=== PATIENT | female | born 1955 | race Caucasian/White ===

== ENCOUNTER 2018-04-28 00:35 | Inpatient (IN) | payer OTHER ==
--- OUTSIDE RECORDS SUMMARY | 2018-04-28 00:37 | XMS REPORT | Clinical Summary ---
:1955 Author Organization [facility] Address [address] [place] [address] Care Team Providers Name Role Phone Ni Rodriguez MD Primary Care Provider Allergies Active Allergy Reactions Severity Noted Date Comments Penicillins Rash High 02/06/2017 Current Medications Prescription Sig. Disp. Refills Start Date End Date Status ranitidine (ZANTAC) Take 300 mg by 0 12/05/2016 Active 300 MG tablet mouth once daily. escitalopram Take 20 mg by 0 12/05/2016 Active (LEXAPRO) 20 MG mouth once tablet daily. levothyroxine Take 112 mcg by 0 12/05/2016 Active (SYNTHROID, LEVOXYL) mouth once 112 mcg tablet daily. cyanocobalamin 1,000 01/24/2017 Active mcg/mL injection PROAIR HFA 90 INHALE 1 PUFF BY 0 12/26/2016 Active mcg/actuation inhaler MOUTH 3 TIMES A DAY NEEDED FOR SHORTNESS OF BREATH SYMBICORT 80-4.5 Inhale 2 puffs 2 0 09/09/2017 Active mcg/actuation inhaler (two) times a day. gabapentin 100 mg. 0 08/27/2017 Active (NEURONTIN) 100 mg capsule montelukast Take 10 mg by 0 09/04/2017 Active (SINGULAIR) 10 mg mouth daily. tablet potassium chloride 01/30/2017 09/24/2017 Discontinued (KLOR-CON) 10 MEQ CR tablet HEMOCYTE-PLUS 106 mg Take 1 capsule 0 12/05/2016 09/24/2017 Discontinued iron- 1 mg capsule by mouth once daily. MAGNESIUM CHLORIDE Take 500 mg by 09/24/2017 Discontinued ORAL mouth. KLOR-CON M20 20 mEq 03/05/2017 09/24/2017 Discontinued CR tablet Active Problems Problem Noted Date Lung nodule 03/19/2017 Encounters Date Type Specialty Care Team Description 09/25/2017 Telephone Cardiothoracic Surgery Katina De Leon NP 09/24/2017 Office Visit Cardiothoracic Surgery [facility] Lung nodule (Primary Dx) 09/24/2017 Hospital Encounter Radiology Oswald [facility]inas Lung kaleigh FLORES 09/06/2017 Transcribe Orders Cardiothoracic Surgery Oswald [facility]inas Lung nodule (Primary Dx) after 04/27/2017 Social History Tobacco Use Types Packs/Day Years Used Date Former Smoker Cigarettes Quit: 07/2015 Smokeless Tobacco: Never Used Tobacco Cessation: Counseling Given: No Alcohol Use Drinks/Week oz/Week Comments Yes 2-3 Months at a time Sex Assigned at Date Recorded Not on file Last Filed Vital Signs Vital Sign Reading Time Taken Blood Pressure 131/72 09/24/2017 12:53 PM [facility] Pulse 76 09/24/2017 12:53 PM [facility] Temperature 36.7 C (98 F) 09/24/2017 12:53 PM [facility] Respiratory Rate 18 09/24/2017 12:53 PM [facility] Oxygen Saturation 95% 09/24/2017 12:53 PM [facility] Inhaled Oxygen Concentration - - Weight 96 kg (211 lb 9.6 oz) 09/24/2017 12:53 PM [facility] Height 162.6 cm (5' 4") 09/24/2017 12:53 PM [facility] Body Mass Index 36.32 09/24/2017 12:53 PM [facility] Plan of Treatment Health Maintenance Due Date Last Done Comments CERVICAL CANCER SCREENING 1977 BREAST CANCER SCREENING 2006 COLON CANCER SCREENING 2006 SHINGRIX VACCINE (#1) 2006 ZOSTER VACCINE 2016 INFLUENZA VACCINE 02/26/2018 Procedures Procedure Name Priority Date/Time Associated Diagnosis Comments CT CHEST WO Routine 09/24/2017 12:43 PM Lung nodule Results for this CONTRAST [employer] [employer] procedure are in the results section. after 04/27/[address] Chest Wo Contrast (09/24/2017 12:43 PM) Narrative Performed At EXAMINATION: [facility] CT CHEST WO CONTRAST CLINICAL HISTORY: R91.1 Solitary pulmonary nodule, NODULE ON CTLUNG TECHNIQUE: Multiple axial images of the chest were obtained without intravenous contrast. The lack of intravenous contrast reduces the sensitivity of detecting solid organ disease and evaluating vasculature. Sagittal and coronal computerized reformatted images were also obtained.Automatic exposure control and iterative reconstruction techniques used to reduce dose. COMPARISON: March 19, 2017, and February 05, 2017 IMPRESSION: Interval resolution of nodularity posterior medially in the left lower lobe. Finding was therefore likely postinfectious/inflammatory in nature. No suspicious focal pulmonary nodules are present on current exam No significant lymphadenopathy, pleural or pericardial effusions are present Degenerative changes are present throughout the bony structures without evidence of a suspicious focal lesion. The gallbladder has been removed [facility]-[id number] Procedure Note Hm Interface, Radiology Results Incoming - 09/24/2017 4:20 PM [employer] [employer] EXAMINATION: CT CHEST WO CONTRAST CLINICAL HISTORY: R91.1 Solitary pulmonary nodule, NODULE ON CT LUNG TECHNIQUE: Multiple axial images of the chest were obtained without intravenous contrast. The lack of intravenous contrast reduces the sensitivity of detecting solid organ disease and evaluating vasculature. Sagittal and coronal computerized reformatted images were also obtained.Automatic exposure control and iterative reconstruction techniques used to reduce dose. COMPARISON: March 19, 2017, and February 05, 2017 IMPRESSION: Interval resolution of nodularity posterior medially in the left lower lobe. Finding was therefore likely postinfectious/inflammatory in nature. No suspicious focal pulmonary nodules are present on current exam No significant lymphadenopathy, pleural or pericardial effusions are present Degenerative changes are present throughout the bony structures without evidence of a suspicious focal lesion. The gallbladder has been removed [facility]-[id number] Performing Organization Address City/State/Zipcode Phone Number [facility] [address] [place] [address] after 04/27/2017 Insurance Payer Benefit Plan / Group Subscriber ID Type Phone Address AETNA AETNA HMO,POS,EPO, MC/EC xxxxxxxxx HMO Home: [address] [facility] [phone] [address]
[2018-04-28 01:40] LABS: Protime INR 1.03
[2018-04-28] MEDS ORDERED: CIPROFLOXACIN 400mg IV 400 MG/200 ML BAG IV ONE (01:41)
[2018-04-28] MEDS ORDERED: NA CHLORIDE 0.9% 500 ML ONE (01:41)
[2018-04-28] MEDS ORDERED: NA CHLORIDE 0.9% 1,000 ML ONE ×2 (01:41→04:37)
[2018-04-28 01:42] LABS: Urine Blood NEGATIVE (NEG); Urine Glucose NEGATIVE (NEG); Urine Protein NEGATIVE (NEG)
[2018-04-28] MEDS ORDERED: METRONIDAZOLE 500mg IVPB 500 MG/100 ML BAG IV ONE (01:42)
[2018-04-28 01:49] LABS: Absolute Lymphocytes (CBC) 1.3 K/uL (0.7-4.9); Absolute Monocytes 0.4 K/uL (0.1-1.3); Absolute Neutrophil 5.4 K/uL (1.8-8.0); Basophils % 0.6 % (0-1.3); Eosinophils % 1.3 % (0-4.4); Hematocrit 43.4 % (36.0-45.0); Lymphocytes % 18.4 % (15.3-44.8); MCV 90.3 fL (80-100); MPV 7.2 fL (7.6-11.3); Monocytes % 6.1 % (3.3-12.3); RBC Red Blood Cell Count 4.81 M/uL (3.86-4.86)
[2018-04-28 02:02] LABS: ALT/SGPT 29 U/L (12-78); AST/SGOT 22 U/L (15-37); Albumin 3.6 g/dL (3.4-5.0); Alkaline Phosphatase 95 U/L (45-117); BUN Blood Urea Nitrogen 14 mg/dL (7-18); Bicarbonate 26 mmol/L (21-32); Bilirubin Direct < 0.1 mg/dL (0-0.2); Bilirubin Total 0.4 mg/dL (0.2-1.0); Glucose Level 121 mg/dL (74-106); Lipase 135 U/L (73-393); Magnesium 2.3 mg/dL (1.8-2.4); NT PRO-BNP 42 pg/mL (<125); Potassium 4.3 mmol/L (3.5-5.1); Protein, Total 7.4 g/dL (6.4-8.2); Sodium Level 142 mmol/L (136-145); Troponin (Emerg Dept Use Only) < 0.02 ng/mL (0.0-0.045)
[2018-04-28] MEDS ORDERED: FENTANYL CITR 100 MCG/2 ML ONE (02:20)
[2018-04-28] MEDS ORDERED: ONDANSETRON 4 MG/2 ML VIAL ONE ×2 (02:36→04:58)
--- NOTE | 2018-04-28 04:33 | ER ---
Nurse's Notes [facility] Name: Lexis Up Age: 62 yrs Sex: Female : 1955 Arrival Date: 04/28/2018 Time: 00:36 Bed 6 Private MD: Diagnosis: Abdominal tenderness;Other and unspecified intestinal obstruction-early or partial sbo;Gastro-esophageal reflux disease;Diarrhea, unspecified;Nausea Presentation: 04/28 00:52 Presenting complaint: Patient states: abd cramps since 1500. diarrhea X2 days with ak1 nausea. Transition of care: patient was not received from another setting of care. Onset of symptoms was April 28, 2018. Risk Assessment: Do you want to hurt yourself or someone else? Patient reports no desire to harm self or others. Initial Sepsis Screen: Does the patient meet any 2 criteria? No. Patient's initial sepsis screen is negative. Does the patient have a suspected source of infection? No. Patient's initial sepsis screen is negative. Care prior to arrival: None. 00:52 Method Of Arrival: Ambulatory ak1 00:52 Acuity: ALYSA 3 ak1 Triage Assessment: 00:56 General: Appears in no apparent distress. Behavior is calm, cooperative. Pain: ak1 Complains of pain in abdomen. EENT: No signs and/or symptoms were reported regarding the EENT system. Neuro: No deficits noted. Cardiovascular: No deficits noted. Respiratory: No deficits noted. GI: Abdomen is round Bowel sounds present X 4 quads. Reports cramping, diarrhea, normal bowel habits. : No signs and/or symptoms were reported regarding the genitourinary system. Derm: No signs and/or symptoms reported regarding the dermatologic system. Musculoskeletal: No signs and/or symptoms reported regarding the musculoskeletal system. Historical: - Allergies: 00:56 PENICILLINS; ak1 - Home Meds: 00:56 levothyroxine 112 mcg tab 1 tab once daily [Active]; gabapentin 100 mg oral cap ak1 [Active]; Lexapro 20 mg Oral tab 1 tab once daily [Active]; ranitidine HCl 300 mg Oral cap 1 cap once daily [Active]; - PMHx: 00:56 acid reflux; Depression; Hypothyroidism; Migraines; ak1 - PSHx: 00:56 Hernia repair; Knee surgery; ; abd sx; ak1 - Immunization history:: Adult Immunizations unknown. - Social history:: Smoking status: Patient/guardian denies using tobacco, the patient reports quitting approximately 3 years ago. - Ebola Screening: : No symptoms or risks identified at this time. - Family history:: not pertinent. Screenin:57 Abuse screen: Denies threats or abuse. Denies injuries from another. Nutritional ak1 screening: No deficits noted. Tuberculosis screening: No symptoms or risk factors identified. Fall Risk None identified. Assessment: 00:57 GI: Abd is soft and non tender. ak1 00:58 Reassessment: Patient appears in no apparent distress at this time. No changes from ak1 previously documented assessment. Patient is alert, oriented x 3, equal unlabored respirations, skin warm/dry/pink. see triage assessment. 01:00 Reassessment: Patient and/or family updated on plan of care and expected duration. Pain ea level reassessed. Patient is alert, oriented x 3, equal unlabored respirations, skin warm/dry/pink. 02:30 Reassessment: Patient and/or family updated on plan of care and expected duration. Pain ea level reassessed. Patient is alert, oriented x 3, equal unlabored respirations, skin warm/dry/pink. 04:14 Reassessment: Patient appears in no apparent distress at this time. No changes from ak1 previously documented assessment. Patient and/or family updated on plan of care and expected duration. Pain level reassessed. Patient is alert, oriented x 3, equal unlabored respirations, skin warm/dry/pink. 05:17 Reassessment: Patient and/or family updated on plan of care and expected duration. Pain ea level reassessed. Patient is alert, oriented x 3, equal unlabored respirations, skin warm/dry/pink. Awaiting on room assignment. Vital Signs: 00:52 BP 124 / 75; Pulse 82; Resp 18; Temp 98.1(TE); Pulse Ox 96% on R/A; Weight 90.72 kg ak1 (R); Height 5 ft. 4 in. (162.56 cm) (R); Pain 10/10; 01:45 BP 113 / 71; Pulse 76; Resp 18; Pulse Ox 96% on R/A; ea 02:30 BP 103 / 62; Pulse 75; Resp 18; Pulse Ox 95% on R/A; ea 04:55 BP 110 / 72; Pulse 73; Resp 18; Temp 98.1; Pulse Ox 96% on R/A; ak1 05:17 BP 104 / 59; Pulse 74; Resp 17; Pulse Ox 97% on R/A; ea 00:52 Body Mass Index 34.33 (90.72 kg, 162.56 cm) ak1 ED Course: 00:36 Patient arrived in ED. ds1 00:38 Shahzad Dykes MD is Attending Physician. shara 00:52 Lety Albert RN is Primary Nurse. ak1 00:53 Triage completed. ak1 00:56 Arm band placed on Patient placed in an exam room, on a stretcher, on pulse oximetry, ak1 Patient notified of wait time. 00:57 Patient has correct armband on for positive identification. Bed in low position. Call ak1 light in reach. Side rails up X 1. Adult w/ patient. Pulse ox on. NIBP on. 01:06 Urine collected: clean catch specimen. ak1 01:30 Initial lab(s) drawn, by me, sent to lab. Inserted saline lock: 20 gauge in left ak1 antecubital area, using aseptic technique. Blood collected. 01:37 X-ray completed. Portable x-ray completed in exam room. Patient tolerated procedure kw well. 01:40 XRAY Chest (1 view) In Process Unspecified. EDMS 03:[address] via wheelchair. kw1 03:29 CT Abd/Pelvis - W/Contrast In Process Unspecified. EDMS 03:30 CT completed. Patient tolerated procedure well. Patient moved back from CT. kw1 04:30 Trever Boyle MD is Hospitalizing Provider. shara 04:53 NGT: inserted 14 Fr. via right nare. verified placement of air over stomach, to jb4 intermittent suction. Returned gastric contents. Patient tolerated well. 04:56 No provider procedures requiring assistance completed. Patient admitted, IV remains in ak1 place. Administered Medications: 01:45 Drug: Cipro 400 mg Volume: 200 ml; Route: IVPB; Infused Over: 60 mins; Site: left ea antecubital; 02:50 Follow up: Response: No adverse reaction; IV Status: Completed infusion ea 01:45 Drug: Flagyl 500 mg Volume: 100 ml; Route: IVPB; Rate: 200 ml/hr; Infused Over: 30 ea mins; Site: left antecubital; 03:00 Follow up: Response: No adverse reaction; IV Status: Completed infusion ea 01:46 Drug: NS 0.9% 500 ml Route: IV; Rate: bolus; Site: left antecubital; ea 02:55 Follow up: Response: No adverse reaction; IV Status: Completed infusion; IV Intake: ea 500ml 01:46 Drug: NS 0.9% 1000 ml Route: IV; Rate: 125 ml/hr; Site: left antecubital; ea 04:46 Follow up: Response: No adverse reaction; IV Status: Infusion continued upon admission ea 02:18 Drug: fentaNYL (PF) 25 mcg Route: IVP; Site: left antecubital; ea 02:50 Follow up: Response: No adverse reaction; Pain is decreased ea 02:35 Drug: Zofran 4 mg Route: IVP; Site: left antecubital; ea 02:58 Follow up: Response: No adverse reaction ea 04:46 Follow up: Response: No adverse reaction ea 03:09 Drug: fentaNYL (PF) 25 mcg Route: IVP; Site: left antecubital; ea 04:48 Follow up: Response: No adverse reaction; Pain is decreased ea 04:32 Drug: fentaNYL (PF) 25 mcg Route: IVP; Site: left antecubital; ea 05:00 Follow up: Response: No adverse reaction; Pain is decreased ea 04:33 Drug: NS 0.9% 1000 ml Route: IV; Rate: 1 bolus; Site: left antecubital; ea 04:56 Follow up: Response: No adverse reaction; IV Status: Infusion continued upon admission ea 04:44 Drug: ProTONIX 40 mg Route: IVP; Site: left antecubital; ea 05:20 Follow up: Response: No adverse reaction ea 04:57 Drug: Zofran 4 mg Route: IVP; Site: left antecubital; ea 05:20 Follow up: Response: No adverse reaction ea Intake: 02:55 IV: 500ml; Total: 500ml. ea Outcome: 04:32 Decision to Hospitalize by Provider. shara 04:56 Condition: stable ak1 04:56 Instructed on the need for admit. 05:35 Admitted to Med/surg accompanied by nurse, family with patient, via wheelchair, room ak1 221, with chart, Other Wilbert RN 05:54 Patient left the ED. ak1 Signatures: Dispatcher [employer] EDMS Shahzad Dykes MD MD cha Sanford, Demi ds1 Prerna Garcias Amber, RN RN ak1 Efrain Mendez RN RN [id number] Elayne Arrington RN RN ea Wilhelm, Kimberly kw1
--- NOTE | 2018-04-28 04:33 | EDPHYS ---
Physician Documentation [facility] Name: Lexis Up Age: 62 yrs Sex: Female : 1955 Arrival Date: 04/28/2018 Time: 00:36 Bed 6 Private MD: ED Physician Shahzad Dykes HPI: 04/28 01:25 This 62 yrs old Female presents to ER via Ambulatory with complaints of shara Abdominal Pain. 01:25 The patient presents with abdominal pain in the upper abdomen, in the lower abdomen, shara abdominal distention in the upper abdomen, in the lower abdomen. Onset: The symptoms/episode began/occurred 2 day(s) ago. The symptoms do not radiate. Associated signs and symptoms: none. The symptoms are described as crampy, dull. Modifying factors: The symptoms are alleviated by nothing, the symptoms are aggravated by nothing. Severity of pain: At its worst the pain was moderate in the emergency department the pain is unchanged. The patient has experienced similar episodes in the past, a few times. Historical: - Allergies: 00:56 PENICILLINS; ak1 - Home Meds: 00:56 levothyroxine 112 mcg tab 1 tab once daily [Active]; gabapentin 100 mg oral cap ak1 [Active]; Lexapro 20 mg Oral tab 1 tab once daily [Active]; ranitidine HCl 300 mg Oral cap 1 cap once daily [Active]; - PMHx: 00:56 acid reflux; Depression; Hypothyroidism; Migraines; ak1 - PSHx: 00:56 Hernia repair; Knee surgery; ; abd sx; ak1 - Immunization history:: Adult Immunizations unknown. - Social history:: Smoking status: Patient/guardian denies using tobacco, the patient reports quitting approximately 3 years ago. - Ebola Screening: : No symptoms or risks identified at this time. - Family history:: not pertinent. ROS: 01:25 Constitutional: Negative for fever, chills, and weight loss, Eyes: Negative for injury, shara pain, redness, and discharge, ENT: Negative for injury, pain, and discharge, Neck: Negative for injury, pain, and swelling, Cardiovascular: Negative for chest pain, palpitations, and edema, Respiratory: Negative for shortness of breath, cough, wheezing, and pleuritic chest pain, Back: Negative for injury and pain, : Negative for injury, bleeding, discharge, and swelling, MS/Extremity: Negative for injury and deformity, Skin: Negative for injury, rash, and discoloration, Neuro: Negative for headache, weakness, numbness, tingling, and seizure, Psych: Negative for depression, anxiety, suicide ideation, homicidal ideation, and hallucinations, Allergy/Immunology: Negative for hives, rash, and allergies, Endocrine: Negative for neck swelling, polydipsia, polyuria, polyphagia, and marked weight changes, Hematologic/Lymphatic: Negative for swollen nodes, abnormal bleeding, and unusual bruising. 01:25 Abdomen/GI: Positive for abdominal pain, of the umbilical area, right upper quadrant, left upper quadrant, right lower quadrant and left lower quadrant. Exam: 01:25 Constitutional: This is a well developed, well nourished patient who is awake, alert, shara and in no acute distress. Head/Face: Normocephalic, atraumatic. Eyes: Pupils equal round and reactive to light, extra-ocular motions intact. Lids and lashes normal. Conjunctiva and sclera are non-icteric and not injected. Cornea within normal limits. Periorbital areas with no swelling, redness, or edema. ENT: Nares patent. No nasal discharge, no septal abnormalities noted. Tympanic membranes are normal and external auditory canals are clear. Oropharynx with no redness, swelling, or masses, exudates, or evidence of obstruction, uvula midline. Mucous membranes moist. Neck: Trachea midline, no thyromegaly or masses palpated, and no cervical lymphadenopathy. Supple, full range of motion without nuchal rigidity, or vertebral point tenderness. No Meningismus. Chest/axilla: Normal chest wall appearance and motion. Nontender with no deformity. No lesions are appreciated. Cardiovascular: Regular rate and rhythm with a normal S1 and S2. No gallops, murmurs, or rubs. Normal PMI, no JVD. No pulse deficits. Respiratory: Lungs have equal breath sounds bilaterally, clear to auscultation and percussion. No rales, rhonchi or wheezes noted. No increased work of breathing, no retractions or nasal flaring. Back: No spinal tenderness. No costovertebral tenderness. Full range of motion. Female : Normal external genitalia. Skin: Warm, dry with normal turgor. Normal color with no rashes, no lesions, and no evidence of cellulitis. MS/ Extremity: Pulses equal, no cyanosis. Neurovascular intact. Full, normal range of motion. Neuro: Awake and alert, GCS 15, oriented to person, place, time, and situation. Cranial nerves II-XII grossly intact. Motor strength 5/5 in all extremities. Sensory grossly intact. Cerebellar exam normal. Normal gait. Psych: Awake, alert, with orientation to person, place and time. Behavior, mood, and affect are within normal limits. 01:25 Abdomen/GI: Inspection: abdomen appears normal, Bowel sounds: normal, Palpation: moderate abdominal tenderness, in the umbilical area, right upper quadrant, left upper quadrant, right lower quadrant and left lower quadrant, Liver: no appreciated palpable abnormalities, Hernia: noted in the paraumbilical area. Vital Signs: 00:52 BP 124 / 75; Pulse 82; Resp 18; Temp 98.1(TE); Pulse Ox 96% on R/A; Weight 90.72 kg ak1 (R); Height 5 ft. 4 in. (162.56 cm) (R); Pain 10/10; 01:45 BP 113 / 71; Pulse 76; Resp 18; Pulse Ox 96% on R/A; ea 02:30 BP 103 / 62; Pulse 75; Resp 18; Pulse Ox 95% on R/A; ea 04:55 BP 110 / 72; Pulse 73; Resp 18; Temp 98.1; Pulse Ox 96% on R/A; ak1 05:17 BP 104 / 59; Pulse 74; Resp 17; Pulse Ox 97% on R/A; ea 00:52 Body Mass Index 34.33 (90.72 kg, 162.56 cm) ak1 MDM: 00:38 Patient medically screened. [facility] 01:27 Data reviewed: vital signs, nurses notes, lab test result(s), EKG, radiologic studies, [facility] CT scan, plain films. 04/28 01:08 Order name: Urine Dipstick--Ancillary (enter results); Complete Time: 02:13 ms 04/28 01:19 Order name: Basic Metabolic Panel; Complete Time: 02:13 shara 04/28 01:19 Order name: CBC with Diff; Complete Time: 02:13 shara 04/28 01:19 Order name: LFT's; Complete Time: 02:13 shara 04/28 01:19 Order name: Magnesium; Complete Time: 02:13 [facility] 04/28 01:19 Order name: NT PRO-BNP; Complete Time: 02:13 [facility] 04/28 01:19 Order name: PT-INR; Complete Time: 02:13 [facility] 04/28 01:19 Order name: Troponin (emerg Dept Use Only); Complete Time: 02:13 [facility] 04/28 01:19 Order name: Lipase; Complete Time: 02:13 [facility] 04/28 01:19 Order name: Urine Culture [facility] 04/28 01:19 Order name: Stool Culture [facility] 04/28 01:19 Order name: Fecal Leukocyte Stain [facility] 04/28 01:19 Order name: CDIFF [facility] 04/28 05:09 Order name: CBC with Automated Diff EDMS 04/28 01:19 Order name: XRAY Chest (1 view) [facility] 04/28 01:25 Order name: CT Abd/Pelvis - W/Contrast [facility] 04/28 05:09 Order name: CBC with Automated Diff EDMS 04/28 05:09 Order name: Comprehensive Metabolic Panel EDMS 04/28 05:09 Order name: Comprehensive Metabolic Panel EDMS 04/28 05:09 Order name: Lipase EDMS 04/28 05:09 Order name: Lipase EDMS 04/28 05:09 Order name: Magnesium EDMS 04/28 05:09 Order name: Magnesium EDMS 04/28 05:09 Order name: Phosphorus EDMS 04/28 05:09 Order name: Phosphorus EDMS 04/28 05:09 Order name: Abdomen W Erect EDMS 04/28 05:09 Order name: Abdomen W Erect EDMS 04/28 01:19 Order name: EKG; Complete Time: 01:20 [facility] 04/28 01:19 Order name: Cardiac monitoring; Complete Time: 01:41 [facility] 04/28 01:19 Order name: EKG - Nurse/Tech; Complete Time: 01:41 [facility] 04/28 01:19 Order name: IV Saline Lock; Complete Time: 01:31 [facility] 04/28 01:19 Order name: Labs collected and sent; Complete Time: 01:31 [facility] 04/28 01:19 Order name: O2 Per Protocol; Complete Time: 01:19 [facility] 04/28 01:19 Order name: O2 Sat Monitoring; Complete Time: 01:19 [facility] 04/28 01:19 Order name: Urine Dipstick-Ancillary (obtain specimen); Complete Time: 01:19 [facility] 04/28 04:25 Order name: NG Tube: to low int suction; Complete Time: 04:55 [facility] 04/28 04:37 Order name: CONS Physician Consult EDMS 04/28 05:09 Order name: NPO EDMS Administered Medications: 01:45 Drug: Cipro 400 mg Volume: 200 ml; Route: IVPB; Infused Over: 60 mins; Site: left ea antecubital; 02:50 Follow up: Response: No adverse reaction; IV Status: Completed infusion ea 01:45 Drug: Flagyl 500 mg Volume: 100 ml; Route: IVPB; Rate: 200 ml/hr; Infused Over: 30 ea mins; Site: left antecubital; 03:00 Follow up: Response: No adverse reaction; IV Status: Completed infusion ea 01:46 Drug: NS 0.9% 500 ml Route: IV; Rate: bolus; Site: left antecubital; ea 02:55 Follow up: Response: No adverse reaction; IV Status: Completed infusion; IV Intake: ea 500ml 01:46 Drug: NS 0.9% 1000 ml Route: IV; Rate: 125 ml/hr; Site: left antecubital; ea 04:46 Follow up: Response: No adverse reaction; IV Status: Infusion continued upon admission ea 02:18 Drug: fentaNYL (PF) 25 mcg Route: IVP; Site: left antecubital; ea 02:50 Follow up: Response: No adverse reaction; Pain is decreased ea 02:35 Drug: Zofran 4 mg Route: IVP; Site: left antecubital; ea 02:58 Follow up: Response: No adverse reaction ea 04:46 Follow up: Response: No adverse reaction ea 03:09 Drug: fentaNYL (PF) 25 mcg Route: IVP; Site: left antecubital; ea 04:48 Follow up: Response: No adverse reaction; Pain is decreased ea 04:32 Drug: fentaNYL (PF) 25 mcg Route: IVP; Site: left antecubital; ea 05:00 Follow up: Response: No adverse reaction; Pain is decreased ea 04:33 Drug: NS 0.9% 1000 ml Route: IV; Rate: 1 bolus; Site: left antecubital; ea 04:56 Follow up: Response: No adverse reaction; IV Status: Infusion continued upon admission ea 04:44 Drug: ProTONIX 40 mg Route: IVP; Site: left antecubital; ea 05:20 Follow up: Response: No adverse reaction ea 04:57 Drug: Zofran 4 mg Route: IVP; Site: left antecubital; ea 05:20 Follow up: Response: No adverse reaction ea Disposition: 04/28/18 04:32 Hospitalization ordered by Trever Boyle for Inpatient Admission. Preliminary diagnosis are Abdominal tenderness, Other and unspecified intestinal obstruction - early or partial sbo, Gastro-esophageal reflux disease, Diarrhea, unspecified, Nausea. - Bed requested for Telemetry/MedSurg (Inpatient). - Status is Inpatient Admission. ak1 - Condition is Stable. - Problem is new. - Symptoms have improved. UTI on Admission? No Signatures: Dispatcher [employer] EDMS Michelle Cornelius RN Shahzad Humphrey MD MD cha Krenek, Amber RN RN [facility] Elayne Arrington RN RN ea Corrections: (The following items were deleted from the chart) 05:23 04:32 Hospitalization Ordered by Trever Boyle MD for Inpatient Admission. Preliminary mw diagnosis is Abdominal tenderness; Other and unspecified intestinal obstruction - early or partial sbo; Gastro-esophageal reflux disease; Diarrhea, unspecified; Nausea. Bed requested for Telemetry/MedSurg (Inpatient). Status is Inpatient Admission. Condition is Stable. Problem is new. Symptoms have improved. UTI on Admission? No. shara 05:54 05:23 04/28/2018 04:32 Hospitalization Ordered by Trever Boyle MD for Inpatient ak1 Admission. Preliminary diagnosis is Abdominal tenderness; Other and unspecified intestinal obstruction - early or partial sbo; Gastro-esophageal reflux disease; Diarrhea, unspecified; Nausea. Bed requested for Telemetry/MedSurg (Inpatient). Status is Inpatient Admission. Condition is Stable. Problem is new. Symptoms have improved. UTI on Admission? No. mw
[2018-04-28] MEDS ORDERED: PANTOPRAZOLE 40 MG INJ ONE (04:40)
[2018-04-28] MEDS ORDERED: ACETAMINOPHEN 500 MG TAB PO PRN (05:00)
[2018-04-28 06:07] VITALS: O2SAT 97
[2018-04-28] MEDS: HYDROMORPHONE HCL 1 MG/ML INJ IV PRN ×3 (06:22→20:07)
[2018-04-28] MEDS: NA CHLORIDE 0.9% 1,000 ML IV SCH ×2 (06:22→15:26)
[2018-04-28] MEDS: METRONIDAZOLE 500mg IVPB 500 MG/100 ML BAG IV SCH ×3 (06:22→16:58)
--- NOTE | 2018-04-28 06:40 | EKG ---
Test Date: 2018-04-28 Test Time: 01:37:16 Checker Product Design: FERNANDO MEASUREMENT RESULTS: Intervals: Rate: 80 IN: 138 QRSD: 70 QT: 374 QTc: 431 [place]: P: 47 IN: 138 QRS: -18 T: 51 INTERPRETIVE STATEMENTS: Normal sinus rhythm Low voltage QRS Cannot rule out Anterior infarct, age undetermined Abnormal ECG Compared to ECG 12/18/2016 16:49:06 Low QRS voltage now present Myocardial infarct finding now present Electronically Signed On 04-28-18 06:40:29 CDT by Dave Rios
[2018-04-28 07:29] VITALS: BMI 40.1
[2018-04-28] MEDS ORDERED: INFLUENZA VACCINE (for 3y+) 0.5 ML DOSE IMVAC ONE (08:00)
--- NOTE | 2018-04-28 08:10 | P.HP ---
Certification for Inpatient Patient admitted to: Inpatient With expected LOS: >2 Midnights Patient will require the following post-hospital care: None Practitioner: I am a practitioner with admitting privileges, knowledge of patient current condition, hospital course, and medical plan of care. Services: Services provided to patient in accordance with Admission requirements found in Title 42 Section 412.3 of the Code of Federal Regulations Patient History Date of Service: 04/28/18 Reason for admission: Abdominal pain History of Present Illness: Patient is a 62-year-old female came into the hospital with abdominal discomfort. She has been having abdominal pain since 3:00 p.m. today. She has also had persistent diarrhea for the last 48 hr. She started having intractable nausea and vomiting. Patient came into the emergency room for further evaluation. In the emergency room, her CT scan revealed an early small- bowel obstruction. She had NG tube placed and she was admitted to the hospital for further evaluation along with a surgical consultation. Patient has had multiple abdominal surgeries in the past so there is concern for adhesions causing small bowel obstruction. Her abdominal tenderness is mild at this time. Will continue to monitor her closely at this time. Allergies Penicillins Allergy (Verified 04/28/18 06:24) Rash Home Medications: Cyanocobalamin [Vitamin B-12*] 1 ml IM Q30D 04/28/18 Duloxetine [Cymbalta Dalayed Release Pellets] 20 mg PO DAILY 04/28/18 Escitalopram [Lexapro*] 1 tab PO DAILY 04/28/18 Gabapentin [Neurontin] 100 mg PO BEDTIME 04/28/18 Levothyroxine Sodium 112 mcg PO DAILY 04/28/18 raNITIdine HCl [Ranitidine HCl] 300 mg PO BEDTIME 04/28/18 - Past Medical/Surgical History Has patient received pneumonia vaccine in the past: No Diabetic: No -: ovarian cancer -: migraines -: hernia -: right knee replaced 2015 -: abd mass excision 2012 -: csection 1992 -: hernia repair 12/19/16 - Family History Mother Medical History: Heart disease, Cancer Notes: father and sister had cancer. sis is diabetic Father Medical History: Cancer, Other (see notes) Notes: brain cancer; emphysema; stomach cancer - Social History Smoking Status: Former smoker Alcohol use: Yes CD- Drugs: No Caffeine use: Yes Place of Residence: Home Review of Systems 10-point ROS is otherwise unremarkable Physical Examination - Vital Signs Temperature: 97.5 F Blood Pressure: 108/56 Pulse: 64 Respirations: 16 Pulse Ox (%): 96 - Physical Exam General: Alert, In no apparent distress, Oriented x3 HEENT: Atraumatic, PERRLA, Mucous membr. moist/pink, EOMI, Sclerae nonicteric Neck: Supple, 2+ carotid pulse no bruit, No LAD, Without JVD or thyroid abnormality Respiratory: Clear to auscultation bilaterally, Normal air movement Cardiovascular: Regular rate/rhythm, Normal S1 S2, No murmurs Gastrointestinal: Hypoactive, Soft and benign, No rebound, No guarding, Distended, Tenderness Musculoskeletal: No clubbing, No swelling, No tenderness Integumentary: No rashes Neurological: Normal gait, Normal speech, Normal strength at 5/5 x4 extr, Normal tone, Sensation intact, Cranial nerves 3-12 intact, Normal affect Lymphatics: No axilla or inguinal lymphadenopathy - Studies Laboratory Data (last 24 hrs) 04/28/18 01:25: WBC 7.3, Hgb 14.9, Hct 43.4, Plt Count 279 04/28/18 01:25: Sodium 142, Potassium 4.3, BUN 14, Creatinine 1.10, Glucose 121 H, Magnesium 2.3, Total Bilirubin 0.4, AST 22, ALT 29, Alkaline Phosphatase 95, Lipase 135 04/28/18 01:19: PT 12.2, INR 1.03 Assessment & Plan - Problems (Diagnosis) (1) Small bowel obstruction Current Visit: Yes Status: Acute (2) Abdominal tenderness Onset Date: 12/21/16 Current Visit: No Status: Acute Qualifiers: (3) Depression with anxiety Current Visit: No Status: Chronic (4) Hypothyroidism Current Visit: No Status: Chronic Qualifiers: (5) Morbid obesity Onset Date: 12/21/16 Current Visit: No Status: Chronic (6) Ventral hernia Onset Date: 12/21/16 Current Visit: No Status: Chronic Qualifiers: - Plan 1. Continue with IV hydration 2. Continue with IV antibiotics 3. Continue with pain control 4. NPO 5. General surgery consultation; NG tube to suction at this time 6. Serial H&H, and we will monitor CBC, BMP, LFTs and lipase along with electrolytes. 7. GI and DVT prophylaxis Discharge Plan: Home Plan to discharge in: Greater than 2 days - Advance Directives Does patient have a Living Will: No Does patient have a Durable POA for Healthcare: No - Code Status/Comfort Care Code Status Assessed: Yes Code Status: Full Code Critical Care: No Time Spent Managing PTS Care (In Minutes): 50
--- NOTE | 2018-04-28 09:00 | RAD REPORT ---
EXAM DESCRIPTION: RAD - Chest Single View - 04/28/2018 1:40 am CLINICAL HISTORY: ABDOMINAL DISTENTION Chest pain. COMPARISON: Chest Pa And Lat (2 Views) dated 01/23/2017; Chest Pa And Lat (2 Views) dated 12/24/2016; Chest Single View dated 12/23/2016 FINDINGS: Portable technique limits examination quality. The lungs are grossly clear. The heart is normal in size. No displaced fractures. IMPRESSION: No acute intrathoracic process suspected.
--- NOTE | 2018-04-28 09:12 | RAD REPORT ---
EXAM DESCRIPTION: CTAbdomen Pelvis W Contrast - 04/28/2018 4:43 am CLINICAL HISTORY: Abdominal pain. ABD PAIN COMPARISON: Abdomen Pelvis W Contrast dated 12/23/2016 TECHNIQUE: Biphasic CT imaging of the abdomen and pelvis was performed with 100 ml non-ionic IV cont rast. All CT scans are performed using dose optimization technique as appropriate and may include automated exposure control or mA/KV adjustment according to patient size. FINDINGS: The lung bases are clear. The liver, spleen, pancreas, adrenal glands and kidneys are within normal limits. Several benign righ t renal cyst noted. Cholecystectomy. Several dilated small bowel loops are seen in the central abdomen compatible with a partial mechanica l small bowel obstruction. Point of transition is noted on the coronal sequence image 27 and 28. Post surgical changes are seen along the anterior abdominal wall. Mild fluid associated with postsurgical mesh. The appendix is normal. No free intraperitoneal air or loculated fluid collections. No evidence of significant lymphadenopathy. No suspicious bony findings. IMPRESSION: Partial mechanical small bowel obstruction.
[2018-04-28] MEDS: Levofloxacin500mg IV 500 MG/100 ML BAG IV SCH (11:02)
[2018-04-28] MEDS: ONDANSETRON 4 MG/2 ML VIAL IV PRN ×3 (11:44→20:07)
[2018-04-28] MEDS: ENOXAPARIN 30 MG/0.3 ML SQ SCH (16:58)
--- NOTE | 2018-04-28 17:52 | P.PN ---
Subjective Date of Service: 04/28/18 Chief Complaint: Abdominal pain doing better day time Physical Examination - Vital Signs Temperature: 97.8 F Blood Pressure: 130/59 Pulse: 87 Respirations: 18 Pulse Ox (%): 95 - Physical Exam General: Alert, In no apparent distress HEENT: Atraumatic, PERRLA, EOMI Neck: Supple, JVD not distended Respiratory: Clear to auscultation bilaterally, Normal air movement Cardiovascular: Regular rate/rhythm, Normal S1 S2 Gastrointestinal: Normal bowel sounds, No tenderness Musculoskeletal: No tenderness Integumentary: No rashes Neurological: Normal speech, Normal tone, Normal affect Lymphatics: No axilla or inguinal lymphadenopathy - Studies Laboratory Data (last 24 hrs) 04/28/18 01:25: WBC 7.3, Hgb 14.9, Hct 43.4, Plt Count 279 04/28/18 01:25: Sodium 142, Potassium 4.3, BUN 14, Creatinine 1.10, Glucose 121 H, Magnesium 2.3, Total Bilirubin 0.4, AST 22, ALT 29, Alkaline Phosphatase 95, Lipase 135 04/28/18 01:19: PT 12.2, INR 1.03 Medications List Reviewed: Yes Assessment And Plan - Current Problems (Diagnosis) (1) Small bowel obstruction Current Visit: Yes Status: Acute (2) Fatty liver Current Visit: Yes Status: Chronic (3) Depression with anxiety Current Visit: Yes Status: Chronic (4) GERD (gastroesophageal reflux disease) Current Visit: Yes Status: Chronic Qualifiers: Esophagitis presence: esophagitis presence not specified Qualified Code(s) : K21.9 - Gastro-esophageal reflux disease without esophagitis (5) Hypothyroidism Current Visit: Yes Status: Chronic Qualifiers: Hypothyroidism type: acquired Qualified Code(s): E03.9 - Hypothyroidism, unspecified - Plan --NPO --NG suctioning --IVF --Cons Dr Vivar
--- NOTE | 2018-04-28 20:21 | CON ---
Date of Consultation: 04/28/2018 Reason: Abdominal pain. History Of Present Illness: The patient is a 62-year-old female, who came in with abdominal pain sin ce 3 p.m. yesterday. She had diarrhea for the 48 hours prior. She last passed gas yesterday and she had a CT scan in the emergency room which revealed early small bowel obstruction. She was admitted for further evaluation. Surgical consultation was obtained. She is passing a little bit gas through the mouth but has not had a bowel movement since being admitted. She has had multiple surgeries. H er pain is better since admission. There is no blood in her stool, dysuria or hematuria, sore throat , runny nose, cough, headaches, or dizziness. No chest pain. No fever or chills. Please note, patient had a component release hernia repair by Dr. Vivar last year and she had done well after that surgery. Review of Systems: Otherwise unremarkable. Past Medical History: Significant for migraines, ovarian cancer. Past Surgical History: Right knee surgery, hernia surgery in the abdomen, excision of abdominal mass in 2012, . Allergies: PENICILLIN. Social History: She used to smoke. Does not smoke. Drinks occasionally. Family History: Significant for unknown type of cancer, emphysema. Physical Examination: Vital Signs: Stable. She is afebrile. She is awake, alert, and oriented x3. Head and Neck: Cranial nerves 2 through 12 are grossly within normal limits. No neck masses. No JV D. Throat clear. Neck is supple. Chest: Clear. Heart: S1, S2. Abdomen: Soft, nondistended, nontender at this time. Hypoactive bowel sounds. Extremity: Adequately perfused. Nontender. Neuro: Nonfocal. Laboratory Data: White count was normal. There is no left shift. INR is 1.03. Chemistry reviewed, essentially unremarkable. The patient had a CT of the abdomen and pelvis, which is reviewed which s hows several dilated small bowel loops in the central abdomen. Mild fluid associated with postsurgic al mesh. Assessment: Partial small-bowel obstruction. Recommendation: N.p.o., NG tube, IV fluid, IV antibiotics, serial abdominal exam. We will get anoth er x-ray tomorrow morning and depending upon patient's clinical status, we will make further recommen dations. /MODL Voice ID: [id number] Report ID: [id number]
[2018-04-28] MEDS ORDERED: RANITIDINE 150 MG TABLET PO SCH (21:00)
[2018-04-28] MEDS: GABAPENTIN 100 MG CAP PO SCH (21:17)
[2018-04-29] MEDS: HYDROMORPHONE HCL 1 MG/ML INJ IV PRN ×5 (00:13→22:37)
[2018-04-29] MEDS: ONDANSETRON 4 MG/2 ML VIAL IV PRN ×6 (00:14→22:37)
[2018-04-29] MEDS: METRONIDAZOLE 500mg IVPB 500 MG/100 ML BAG IV SCH ×4 (00:16→18:16)
[2018-04-29] MEDS: NA CHLORIDE 0.9% 1,000 ML IV SCH (04:05)
[2018-04-29] MEDS: LEVOTHYROXINE SOD 0.112 MG TAB PO SCH (05:54)
[2018-04-29 06:06] LABS: Absolute Lymphocytes (CBC) 0.8 K/uL (0.7-4.9); Absolute Monocytes 0.4 K/uL (0.1-1.3); Absolute Neutrophil 4.3 K/uL (1.8-8.0); Basophils % 0.4 % (0-1.3); Eosinophils % 1.3 % (0-4.4); Hematocrit 36.4 % (36.0-45.0); Lymphocytes % 13.8 % (15.3-44.8); MCH 31.4 pg (27.0-35.0); MCV 91.1 fL (80-100); MPV 7.1 fL (7.6-11.3); Monocytes % 6.6 % (3.3-12.3); RBC Red Blood Cell Count 3.99 M/uL (3.86-4.86)
[2018-04-29 06:32] LABS: Albumin 3.1 g/dL (3.4-5.0); Bilirubin Total 0.2 mg/dL (0.2-1.0); Magnesium 2.3 mg/dL (1.8-2.4); Phosphorus 2.5 mg/dL (2.5-4.9); Protein, Total 6.2 g/dL (6.4-8.2)
[2018-04-29] MEDS ORDERED: PROMETHAZINE 25 MG/ML VIAL IV PRN (08:11)
[2018-04-29] MEDS ORDERED: SODIUM CHLORIDE 0.9% 10ML INJ IV PRN (08:11)
[2018-04-29] MEDS: PANTOPRAZOLE 40 MG INJ IVP SCH (08:30)
[2018-04-29] MEDS: ENOXAPARIN 30 MG/0.3 ML SQ SCH (08:39)
[2018-04-29] MEDS: NACHLORIDE 0.45% 1,000 ML IV SCH ×2 (09:00→18:18)
--- NOTE | 2018-04-29 09:36 | RAD REPORT ---
EXAM DESCRIPTION: RAD - Abdomen W Erect - 04/29/2018 6:49 am CLINICAL HISTORY: Abdominal pain FINDINGS: Contrast from a recent CT is present within the colon. The bowel caliber appears normal. Free air is not seen beneath the diaphragm. Nasogastric tube is coiled within the proximal stomach
[2018-04-29] MEDS: DULOXETINE 20 MG CAP PO SCH (09:59)
[2018-04-29] MEDS: ESCITALOPRAM 20 MG TAB PO SCH (09:59)
[2018-04-29] MEDS: Levofloxacin500mg IV 500 MG/100 ML BAG IV SCH (12:24)
--- NOTE | 2018-04-29 13:11 | P.PN ---
Subjective Date of Service: 04/29/18 Primary Care Provider: Dr. Rodriguez Chief Complaint: Abdominal pain Subjective: Improving (Patient has passed gas and bowel movement) Physical Examination - Vital Signs Temperature: 97.8 F Blood Pressure: 111/54 Pulse: 82 Respirations: 17 Pulse Ox (%): 95 - Physical Exam General: Alert, In no apparent distress, Oriented x3, Cooperative HEENT: Atraumatic Neck: Supple Respiratory: Clear to auscultation bilaterally, Normal air movement Cardiovascular: Normal pulses, Regular rate/rhythm Gastrointestinal: Normal bowel sounds, Soft and benign, Non-distended, No tenderness, No masses, No rebound, No guarding Musculoskeletal: No erythema, No tenderness, No warmth Integumentary: No tenderness/swelling, No erythema, No warmth, No cyanosis Neurological: Normal speech, Normal strength at 5/5 x4 extr, Normal tone, Normal affect - Studies Medications List Reviewed: Yes Assessment & Plan Discharge Plan: Home Plan to discharge in: 24 Hours Physician Review Additional Text: Impression: Abdominal pain, nausea and vomiting secondary to partial small bowel obstruction Acute renal insufficiency likely from dehydration Depression with anxiety Hypothyroidism Plan: Abdominal pain, nausea and vomiting secondary to partial small bowel obstruction : Patient much improved. Repeat abdominal x-ray shows improvement and no more obstruction. Will discuss with surgery. Anticipate trial of clear liquid and advance as tolerated. Encourage ambulation. Possible removal of NG tube if improved. Likely discharge in the next 24-48 hr. Continue IV antibiotic therapy. Acute renal insufficiency likely from dehydration: Improved with IV hydration. Will continue to monitor closely. Depression with anxiety: Will continue with her medication. Hypothyroidism: Will continue with her medication. Time Spent Managing Pts Care (In Minutes): 55
[2018-04-29] MEDS: GABAPENTIN 100 MG CAP PO SCH (21:36)
[2018-04-30] MEDS: METRONIDAZOLE 500mg IVPB 500 MG/100 ML BAG IV SCH ×3 (00:07→11:30)
[2018-04-30] MEDS: NACHLORIDE 0.45% 1,000 ML IV SCH (05:06)
[2018-04-30] MEDS: ONDANSETRON 4 MG/2 ML VIAL IV PRN (06:00)
[2018-04-30] MEDS: HYDROMORPHONE HCL 1 MG/ML INJ IV PRN (06:00)
[2018-04-30] MEDS: LEVOTHYROXINE SOD 0.112 MG TAB PO SCH (06:04)
[2018-04-30 06:10] LABS: Absolute Lymphocytes (CBC) 1.1 K/uL (0.7-4.9); Absolute Monocytes 0.4 K/uL (0.1-1.3); Absolute Neutrophil 3.4 K/uL (1.8-8.0); Basophils % 0.6 % (0-1.3); Eosinophils % 1.8 % (0-4.4); Hematocrit 35.6 % (36.0-45.0); Lymphocytes % 21.1 % (15.3-44.8); MCH 31.1 pg (27.0-35.0); MCV 90.3 fL (80-100); Monocytes % 7.6 % (3.3-12.3); RBC Red Blood Cell Count 3.94 M/uL (3.86-4.86)
[2018-04-30 06:26] LABS: Potassium 3.3 mmol/L (3.5-5.1)
[2018-04-30] MEDS ORDERED: POTASSIUM 25 MEQ EFFERV TAB PO ONE (09:00)
--- NOTE | 2018-04-30 09:16 | P.CNS ---
Date of Consult: 04/29/18 Primary Care Provider: Dr. Rodriguez Chief Complaint: SBO History of Present Illness: 62 y/o female admitted to hospital with nausea, vomit associated with generalized abd cramps. 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 Pt feels better. Pt has hx of abominal wall reconstruction for hernia several years ago uneventfully. Allergies Penicillins Allergy (Verified 04/28/18 06:24) Rash Home Medications: Cyanocobalamin [Vitamin B-12*] 1 ml IM Q30D 04/28/18 Duloxetine [Cymbalta Dalayed Release Pellets] 20 mg PO DAILY 04/28/18 Escitalopram [Lexapro*] 1 tab PO DAILY 04/28/18 Gabapentin [Neurontin] 100 mg PO BEDTIME 04/28/18 Levothyroxine Sodium 112 mcg PO DAILY 04/28/18 raNITIdine HCl [Ranitidine HCl] 300 mg PO BEDTIME 04/28/18 - Past Medical/Surgical History Diabetic: No -: ovarian cancer -: migraines -: hernia -: right knee replaced 2015 -: abd mass excision 2012 -: csection 1992 -: hernia repair 12/19/16 - Family History Mother Medical History: Heart disease, Cancer Notes: father and sister had cancer. sis is diabetic Father Medical History: Cancer, Other (see notes) Notes: brain cancer; emphysema; stomach cancer - Social History Alcohol use: Yes CD- Drugs: No Caffeine use: Yes Place of Residence: Home Review of Systems 10-point ROS is otherwise unremarkable Gastrointestinal: Nausea, Vomiting (no), Abdominal Pain, Diarrhea (no), No Distention, Constipation (no), Melena (no), Hematochezia (no), As per HPI Physical Examination Temp Pulse Resp BP Pulse Ox 97 F 82 18 118/63 95 04/30/18 04:00 04/30/18 04:00 04/30/18 04:00 04/30/18 04:00 04/30/18 04:00 General: Alert, Oriented x3, Cooperative HEENT: PERRLA, EOMI, Sclerae nonicteric Neck: Supple Respiratory: Clear to auscultation bilaterally Cardiovascular: No edema Gastrointestinal: Soft and benign, No rebound, No guarding, Hyperactive Integumentary: No rashes, No breakdown, No erythema, No warmth, No cyanosis Neurological: Normal speech Imagings Data: today abd xray discussed with pt Conclusions/Impression: clear liquid ( pt passing gas) clamp NGT, we may d/c ngt if diet tolerated oob
[2018-04-30] MEDS: PANTOPRAZOLE 40 MG INJ IVP SCH (09:21)
[2018-04-30] MEDS: ESCITALOPRAM 20 MG TAB PO SCH (09:21)
[2018-04-30] MEDS: DULOXETINE 20 MG CAP PO SCH (09:21)
[2018-04-30] MEDS: ENOXAPARIN 30 MG/0.3 ML SQ SCH (09:21)
[2018-04-30] MEDS: Levofloxacin500mg IV 500 MG/100 ML BAG IV SCH (11:30)
--- NOTE | 2018-04-30 12:57 | P.DS ---
Admission Date: 04/28/18 Discharge Date: 04/30/18 Primary Care Provider: Dr. Rodriguez Disposition: ROUTINE DISCHARGE Discharge Condition: GOOD Reason for Admission: SBO Consultations: Surgery-Dr. Vivar Procedures: CT scan: COMPARISON: Abdomen Pelvis W Contrast dated 12/23/2016 TECHNIQUE: Biphasic CT imaging of the abdomen and pelvis was performed with 100 ml non-ionic IV contrast. All CT scans are performed using dose optimization technique as appropriate and may include automated exposure control or mA/KV adjustment according to patient size. FINDINGS: The lung bases are clear. The liver, spleen, pancreas, adrenal glands and kidneys are within normal limits. Several benign right renal cyst noted. Cholecystectomy. Several dilated small bowel loops are seen in the central abdomen compatible with a partial mechanical small bowel obstruction. Point of transition is noted on the coronal sequence image 27 and 28. Postsurgical changes are seen along the anterior abdominal wall. Mild fluid associated with postsurgical mesh. The appendix is normal. No free intraperitoneal air or loculated fluid collections. No evidence of significant lymphadenopathy. No suspicious bony findings. IMPRESSION: Partial mechanical small bowel obstruction. Repeat abdominal x-ray: CLINICAL HISTORY: Abdominal pain FINDINGS: Contrast from a recent CT is present within the colon The bowel caliber appears normal. Free air is not seen beneath the diaphragm. Nasogastric tube is coiled within the proximal stomach Medical problem list: Impression: Abdominal pain, nausea and vomiting secondary to partial small bowel obstruction , resolved Acute renal insufficiency likely from dehydration, resolved UTI, urine culture positive for E coli Depression with anxiety Hypothyroidism Brief History of Present Illness: 62-year-old female present emergency room with abdominal pain, nausea and vomiting. CT scan revealed partial small bowel obstruction. Patient was admitted for treatment. Hospital Course: Patient presented with abdominal pain, nausea and vomiting. Patient found to have partial small bowel obstruction. Patient was admitted for treatment. Patient seen and evaluated by surgery. No surgical intervention was required. Patient was able to passed stool and gas. Repeat x-ray showed resolution of partial bowel obstruction. Diet advanced. At discharge she denied any nausea, vomiting, or abdominal pain. At discharge she will continue with Levaquin 500 mg daily and Flagyl 500 mg 1 pill 3 times a day for 5 more days. Recommendation is for the patient follow up with surgery in 1-2 weeks to follow up this hospitalization. Patient should follow up with GI as an outpatient to further monitor. Patient may require colonoscopy in 4-6 weeks to monitor her progress. Zofran 4 mg 1 pill 3 times a day as needed for nausea and tramadol 50 mg 1 pill twice daily as needed for pain will be provided. Patient had acute renal insufficiency likely from dehydration. Patient received IV fluids. This has resolved. Patient with depression anxiety. Patient may continue with her medication- Cymbalta 20 mg daily and Lexapro 20 mg daily. Patient with hypothyroidism. Patient continue with her medication- levothyroxine 112 mcg daily. Patient has GERD. Zantac discontinued. Patient to continue with Protonix 40 mg once daily. Patient may follow up with GI as an outpatient to further address. Patient found to have a UTI. Urine culture positive for E coli. Patient will continue with Levaquin 500 mg daily for 5 more days. UTI prevention will be educated. Recommendation to recheck urinalysis after treatment to monitor resolution. Vital Signs/Physical Exam: Temp Pulse Resp BP Pulse Ox 97 F 82 18 118/63 95 04/30/18 04:00 04/30/18 04:00 04/30/18 04:00 04/30/18 04:00 04/30/18 04:00 General: Alert, In no apparent distress, Oriented x3, Cooperative HEENT: Atraumatic, Normocephalic Neck: Supple Respiratory: Clear to auscultation bilaterally, Normal air movement Cardiovascular: Normal pulses, Regular rate/rhythm Gastrointestinal: Normal bowel sounds, Soft and benign, Non-distended, No tenderness, No masses, No rebound, No guarding Musculoskeletal: No erythema, No tenderness, No warmth Integumentary: No tenderness/swelling, No erythema, No warmth, No cyanosis Neurological: Normal speech, Normal strength at 5/5 x4 extr, Normal tone, Normal affect Laboratory Data at Discharge: WBC 5.0 K/uL (4.3-10.9) 04/30/18 05:50 Hgb 12.3 g/dL (12.0-15.0) 04/30/18 05:50 Hct 35.6 % (36.0-45.0) L 04/30/18 05:50 Plt Count 215 K/uL (152-406) 04/30/18 05:50 PT 12.2 SECONDS (9.5-12.5) 04/28/18 01:19 INR 1.03 04/28/18 01:19 Sodium 141 mmol/L (136-145) 04/30/18 05:50 Potassium 3.3 mmol/L (3.5-5.1) L 04/30/18 05:50 BUN 7 mg/dL (7-18) 04/30/18 05:50 Creatinine 0.80 mg/dL (0.55-1.3) 04/30/18 05:50 Glucose 84 mg/dL (74-106) 04/30/18 05:50 Phosphorus 2.5 mg/dL (2.5-4.9) 04/29/18 05:22 Magnesium 2.0 mg/dL (1.8-2.4) 04/30/18 05:50 Total Bilirubin 0.2 mg/dL (0.2-1.0) 04/29/18 05:22 AST 26 U/L (15-37) 04/29/18 05:22 ALT 49 U/L (12-78) 04/29/18 05:22 Alkaline Phosphatase 82 U/L (45-117) 04/29/18 05:22 Lipase 160 U/L (73-393) 04/29/18 05:22 Home Medications: Cyanocobalamin [Vitamin B-12*] 1 ml IM Q30D 04/28/18 Duloxetine [Cymbalta *] 20 mg PO DAILY 04/28/18 Escitalopram [Lexapro*] 1 tab PO DAILY 04/28/18 Gabapentin [Neurontin*] 100 mg PO BEDTIME 04/28/18 Levothyroxine Sodium 112 mcg PO DAILY 04/28/18 Levofloxacin [Levaquin] 500 mg PO DAILY #5 tablet 04/30/18 Ondansetron HCl [Zofran] 4 mg PO TID PRN #10 tablet 04/30/18 Pantoprazole [Protonix Tab] 40 mg PO DAILY #30 tab 04/30/18 metroNIDAZOLE [Flagyl] 500 mg PO Q8H #15 tablet 04/30/18 traMADol HCL [Ultram*] 50 mg PO TID PRN #10 tab 04/30/18 New Medications: Levofloxacin [Levaquin] 500 mg PO DAILY #5 tablet metroNIDAZOLE [Flagyl] 500 mg PO Q8H #15 tablet Ondansetron HCl [Zofran] 4 mg PO TID PRN #10 tablet PRN Reason: Nausea / Vomiting Pantoprazole [Protonix Tab] 40 mg PO DAILY #30 tab traMADol HCL [Ultram*] 50 mg PO TID PRN #10 tab PRN Reason: Pain Patient Discharge Instructions: 1. Patient will need to follow up with her PCP to follow up this hospitalization. 2. Patient presented with abdominal pain, nausea and vomiting. Patient found to have partial small bowel obstruction. Patient was admitted for treatment. Patient seen and evaluated by surgery. No surgical intervention was required. Patient was able to passed stool and gas. Repeat x-ray showed resolution of partial bowel obstruction. Diet advanced. At discharge she denied any nausea, vomiting, or abdominal pain. At discharge she will continue with Levaquin 500 mg daily and Flagyl 500 mg 1 pill 3 times a day for 5 more days. Recommendation is for the patient follow up with surgery in 1-2 weeks to follow up this hospitalization. Patient should follow up with GI as an outpatient to further monitor. Patient may require colonoscopy in 4-6 weeks to monitor her progress. Zofran 4 mg 1 pill 3 times a day as needed for nausea and tramadol 50 mg 1 pill twice daily as needed for pain will be provided. 3. Patient had acute renal insufficiency likely from dehydration. Patient received IV fluids. This has resolved. 4. Patient with depression anxiety. Patient may continue with her medication-Cymbalta 20 mg daily and Lexapro 20 mg daily. 5. Patient with hypothyroidism. Patient continue with her medication. 6. Patient found to have a UTI. Urine culture positive for E coli. Patient will continue with Levaquin 500 mg daily for 5 more days. UTI prevention will be educated. Recommendation to recheck urinalysis after treatment to monitor resolution. 7. Patient has GERD. At discharge Zantac discontinued. Patient will continue with Protonix 40 mg 1 pill once daily. Patient may follow up with GI as an outpatient further address. Diet: AHA Activity: Ad jonnie Time spent managing pt's care (in minutes): 55
[2018-04-30 14:04] VITALS: BP 116/66; TEMP 99.4
== END 2018-04-30 14:55 | disposition home or self-care (01) | DRG 389 ==
LOC: ER 00:35 → ERHOLD 05:25 → 2ND 05:27
PROVIDERS: ADMIT Hospitalist; ATTEND Family Medicine
PROC: 0D9670Z Drainage of Stomach with Drainage Device, Via Natural or Artificial Opening (ICD-10-PCS; principal; 2018-04-28)
DX: K56.600 Partial intestinal obstruction, unspecified as to cause (principal); N39.0 Urinary tract infection, site not specified; E86.0 Dehydration; N28.9 Disorder of kidney and ureter, unspecified; B96.20 Unspecified Escherichia coli [E. coli] as the cause of diseases classified elsewhere; F32.9 Major depressive disorder, single episode, unspecified; F41.9 Anxiety disorder, unspecified; E03.9 Hypothyroidism, unspecified; Z88.0 Allergy status to penicillin; Z96.651 Presence of right artificial knee joint; Z87.891 Personal history of nicotine dependence; K43.9 Ventral hernia without obstruction or gangrene; E66.01 Morbid (severe) obesity due to excess calories; K76.0 Fatty (change of) liver, not elsewhere classified; Z68.34 Body mass index [BMI] 34.0-34.9, adult
CPT/HCPCS: 36415; 71045; 74019; 74177; 80048; 80053; 80076; 81003; 83690; 83735; 83880; 84100; 84484; 85025; 85610; 87045; 87046; 87077; 87086; 87088; 87186; 87493; 89055; 93005; 96361; 96365; 96368; 96375; 99285; C9113; G0008; J0744; J1170; J1650; J2405; J3010; J7030; Q2035; Q9967